=== PATIENT | male | born 1995 | race Two or more races ===

== ENCOUNTER → 2020-02-24 | Emergency (ER) | payer SELFPAY ==
[~2020-02-24] VITALS: Ht 185.4 cm; Wt 69.9 kg
[2020-02-24 16:59] VITALS: BP 128/80
== END | disposition left against medical advice (07) ==
LOC: ER 16:47 → EDBD 16:47
DX: M54.9 Dorsalgia, unspecified (principal); Z53.21 Procedure and treatment not carried out due to patient leaving prior to being seen by health care provider